=== PATIENT | female | born 1995 | race Caucasian/White ===

== ENCOUNTER 2016-07-05 10:34 | Emergency (ER) | payer SELFPAY ==
[~2016-07-05] VITALS: Ht 165.1 cm; Wt 86.2 kg
--- NOTE | 2016-07-05 10:57 | ED GU-Female ---
General Chief Complaint: -Female Stated Complaint: DIZZINESS/VOMITING Source: patient, family, RN notes reviewed Exam Limitations: no limitations History of Present Illness Time seen by provider: 10:52 Initial Comments Patient was feeling fine but left a tampon in overnight when stenosis morning she became dizzy, lightheaded and had some nausea of green fluid but no blood. She's had no fever, chills, diarrhea, constipation, rash, headache, dysuria, vaginal discharge. She notes she did have a miscarriage a few months ago. She states her mother told her she should come up. Be checked out for toxic shock syndrome. Allergies and Home Medications Allergies Coded Allergies: No Known Drug Allergies (Unverified , 07/05/16) Home Medications Ondansetron HCl 4 Mg Tab, 4 MG PO Q6H PRN for NAUSEA-1ST LINE, #20 Ref 0 Prescribed by: JORDI SOUZA on 07/05/16 4321 Constitutional: No chills, No diaphoresis, dizziness, No fever, malaise EENTM: no symptoms reported, No ear pain, No eye pain, No nose congestion Respiratory: No cough, No short of breath, No wheezing Cardiovascular: No chest pain, No edema, No palpitations, No syncope Gastrointestinal: No abdominal pain, No constipation, No diarrhea, No loss of appetite, nausea, vomiting (biliary, not witnessed) Genitourinary: denies burning, denies dysuria Skin: No pruritus, No rash Psychiatric/Neurological: Denies Headache, Denies Numbness Past Iwfrajr-Etshri-Ztwwob Hx Patient Social History Recent Foreign Travel: No Contact w/Someone Who Travel: No Physical Exam Vital Signs Vital Sign - Last 12Hours 07/05/16 10:40 Temp 97.0 Pulse 94 Resp 24 B/P (MAP) 128/93 Pulse Ox 98 Capillary Refill : General Appearance: WD/WN, no apparent distress HEENT: PERRL/EOMI, normal ENT inspection, pharynx normal Neck: non-tender, full range of motion, normal inspection Cardiovascular: normal peripheral pulses, regular rate, rhythm, no edema, no murmur Respiratory: chest non-tender, lungs clear, normal breath sounds, no respiratory distress Gastrointestinal: normal bowel sounds, non tender, soft Back: normal inspection, no CVA tenderness Extremities: normal range of motion, non-tender, normal inspection, no pedal edema Neurologic/Psychiatric: alert, normal mood/affect, oriented x 3 Skin: normal color, warm/dry Lymphatic: no adenopathy Progress/Results/Core Measures Results/Orders Lab Results Laboratory Tests Test 07/05/16 11:00 07/05/16 11:15 Range/Units Urine Color YELLOW Urine Clarity CLEAR Urine pH 6 5-9 Urine Specific [place] 1.020 1.016-1.022 Urine Protein NEGATIVE NEGATIVE Urine Glucose (UA) NEGATIVE NEGATIVE Urine Ketones NEGATIVE NEGATIVE Urine Nitrite NEGATIVE NEGATIVE Urine Bilirubin NEGATIVE NEGATIVE Urine Urobilinogen NORMAL NORMAL MG/DL Urine Leukocyte Esterase 1+ H NEGATIVE Urine RBC (Auto) NEGATIVE NEGATIVE Urine RBC NONE /HPF Urine WBC 2-5 /HPF Urine Squamous Epithelial Cells 0-2 /HPF Urine Crystals NONE /LPF Urine Bacteria LARGE H /HPF Urine Casts NONE /LPF Urine Mucus SMALL H /LPF Urine Culture Indicated NO White Blood Count 9.4 4.3-11.0 10^3/uL Red Blood Count 5.09 4.35-5.85 10^6/uL Hemoglobin 14.2 11.5-16.0 G/DL Hematocrit 42 35-52 % Mean Corpuscular Volume 83 80-99 FL Mean Corpuscular Hemoglobin 28 25-34 PG Mean Corpuscular Hemoglobin Concent 34 32-36 G/DL Red Cell Distribution Width 12.4 10.0-14.5 % Platelet Count 326 130-400 10^3/uL Mean Platelet Volume 9.6 7.4-10.4 FL Neutrophils (%) (Auto) 80 H 42-75 % Lymphocytes (%) (Auto) 13 12-44 % Monocytes (%) (Auto) 6 0-12 % Eosinophils (%) (Auto) 0 0-10 % Basophils (%) (Auto) 1 0-10 % Neutrophils # (Auto) 7.5 1.8-7.8 X 10^3 Lymphocytes # (Auto) 1.2 1.0-4.0 X 10^3 Monocytes # (Auto) 0.6 0.0-1.0 X 10^3 Eosinophils # (Auto) 0.0 0.0-0.3 10^3/uL Basophils # (Auto) 0.1 0.0-0.1 10^3/uL Sodium Level 139 135-145 MMOL/L Potassium Level 4.1 3.6-5.0 MMOL/L Chloride Level 106 98-107 MMOL/L Carbon Dioxide Level 23 21-32 MMOL/L Anion Gap 10 5-14 MMOL/L Blood Urea Nitrogen 10 7-18 MG/DL Creatinine 0.86 0.60-1.30 MG/DL Estimat Glomerular Filtration Rate > 60 BUN/Creatinine Ratio 12 Glucose Level 100 70-105 MG/DL Calcium Level 9.6 8.5-10.1 MG/DL Total Bilirubin 0.7 0.1-1.0 MG/DL Aspartate Amino Transf (AST/SGOT) 20 5-34 U/L Alanine Aminotransferase (ALT/SGPT) 13 0-55 U/L Alkaline Phosphatase 87 40-136 U/L Total Protein 8.3 H 6.4-8.2 G/DL Albumin 4.2 3.2-4.5 G/DL My Orders Orders - JORDI SOUZA Cbc With Automated Diff (07/05/16 10:57) Comprehensive Metabolic Panel (07/05/16 10:57) Ua Culture If Indicated (07/05/16 10:57) Ondansetron Oral Dissolve Tab (Zofran (07/05/16 11:30) Medications Given in ED Current Medications Medications Dose Ordered Sig/Giovany Route Start Time Stop Time Status Last Admin Dose Admin Ondansetron HCl 4 mg ONCE ONCE PO 07/05/16 11:30 07/05/16 11:32 DC 07/05/16 11:40 4 MG Vital Signs/I&O Vital Sign - Last 12Hours 07/05/16 07/05/16 10:40 12:04 Temp 97.0 97.0 Pulse 94 94 Resp 24 24 B/P (MAP) 128/93 Pulse Ox 98 98 Progress Note : Time: 11:48 Progress Note Patient is doing well her urine is unremarkable despite the bacteria she has, it is asymptomatic so no treatment would be indicated at this time. White count is normal despite a small left shift. Her symptoms could be explained by just anxiety. Nausea medicine prescription will be sent and the patient can establish with a PCP or return to the ER if something changes. Because her vitals are normal and her labs are unremarkable and her history is not that concerning for toxic shock syndrome or uti and I would allow her to go. Departure Impression Impression: Primary Impression: Nausea & vomiting Qualified Codes: R11.2 - Nausea with vomiting, unspecified Disposition: HOME, SELF-CARE Condition: Stable Departure-Patient Inst. Decision time for Depature: 11:50 Referrals: NO,LOCAL PHYSICIAN (PCP) Primary Care Physician Add. Discharge Instructions: There are no signs of infection of UTI or other worrisome findings on your blood work. He should drink plenty of fluids and a prescription for medicines he can take for nausea been sent to the pharmacy. 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 Establish with a PCP on your own time and you may return to the PCP or ER as necessary for new or worsening symptoms such as fever, nausea and vomiting but does not get better, painful discharge, etc. All discharge instructions reviewed with patient and/or family. Voiced understanding. Scripts Ondansetron HCl (Zofran) 4 Mg Tab 4 MG PO Q6H Y for NAUSEA-1ST LINE, #20 TAB 0 Refills Prov: JORDI SOUZA 07/05/16 JORDI SOUZA Jul 05, 2016 10:57
[2016-07-05 11:07] LABS: BILIRUBIN,URINE NEGATIVE (NEGATIVE); KETONES,URINE NEGATIVE (NEGATIVE); LEUKOCYTE ESTERASE ,URINE 1+ (NEGATIVE); NITRITE,URINE NEGATIVE (NEGATIVE); PH,URINE 6 (5-9); PROTEIN,URINE NEGATIVE (NEGATIVE); UROBILINOGEN,URINE NORMAL (NORMAL)
[2016-07-05 11:21] LABS: BASOPHILS # (AUTO) 0.1 10^3/uL (0.0-0.1); BASOPHILS % (AUTO) 1 % (0-10); EOSINOPHILS % (AUTO) 0 % (0-10); LYMPHOCYTES # (AUTO) 1.2 X 10^3 (1.0-4.0); LYMPHOCYTES % (AUTO) 13 % (12-44); MEAN CORPUSCULAR HEMOGLOBIN 28 PG (25-34); MEAN CORPUSCULAR HGB CONC 34 G/DL (32-36); MEAN CORPUSCULAR VOLUME 83 FL (80-99); MEAN PLATELET VOLUME 9.6 FL (7.4-10.4); MONOCYTES # (AUTO) 0.6 X 10^3 (0.0-1.0); MONOCYTES % (AUTO) 6 % (0-12); NEUTROPHILS # (AUTO) 7.5 X 10^3 (1.8-7.8); NEUTROPHILS % (AUTO) 80 % (42-75); PLATELET COUNT 326 10^3/uL (130-400); RED BLOOD COUNT 5.09 10^6/uL (4.35-5.85); RED CELL DISTRIBUTION WIDTH 12.4 % (10.0-14.5); WHITE BLOOD COUNT 9.4 10^3/uL (4.3-11.0)
[2016-07-05 11:26] LABS: SQUAMOUS EPITHELIAL CELL,UR 0-2 /HPF
[2016-07-05] MEDS ORDERED: ONDANSETRON 4 MG (ZOFRAN) ORAL DISSOLVE TAB PO ONE (11:30)
[2016-07-05 11:40] LABS: ALANINE AMINOTRANSFERASE 13 U/L (0-55); ALBUMIN 4.2 G/DL (3.2-4.5); ANION GAP 10 MMOL/L (5-14); ASPARTATE AMINO TRANSFERASE 20 U/L (5-34); BILIRUBIN,TOTAL 0.7 MG/DL (0.1-1.0); BLOOD UREA NITROGEN 10 MG/DL (7-18); BUN/CREATININE RATIO 12; CALCIUM 9.6 MG/DL (8.5-10.1); CARBON DIOXIDE 23 MMOL/L (21-32); CHLORIDE 106 MMOL/L (98-107); CREATININE SERUM 0.86 MG/DL (0.60-1.30); GFR ESTIMATED > 60; GLUCOSE 100 MG/DL (70-105); POTASSIUM 4.1 MMOL/L (3.6-5.0); SODIUM 139 MMOL/L (135-145); TOTAL PROTEIN 8.3 G/DL (6.4-8.2)
[2016-07-05] MEDS ORDERED: ONDN4T PO (11:53)
[2016-07-05 12:04] VITALS: BP 128/93
== END 2016-07-05 12:03 | disposition home or self-care (01) ==
LOC: ER 10:37
DX: R11.2 Nausea with vomiting, unspecified (principal); R42 Dizziness and giddiness
CPT/HCPCS: 36415; 80053; 81000; 85025; 99282

== ENCOUNTER 2019-01-28 20:26 | Outpatient (CLI) | payer MEDICAID ==
[~2019-01-28] VITALS: Ht 162 cm; Wt 97.3 kg
[~2019-01-28 20:26] MED LIST: ONDN4T PO
--- NOTE | 2019-01-28 20:40 | NUR ---
RENETTA REYNOLDS presented to unit via ambulatory from ED, accompanied by s/o , with c/o CRAMPING 34 2/7 weeks ,LOW BACK PAIN. RENETTA REYNOLDS weighed, gowned, voided, and to bed. EFHM and TOCO applied, VS taken. RENETTA REYNOLDS oriented to bed controls, call light, TV, heat, and A/C controls.
[2019-01-28 20:59] VITALS: BP 118/76
[2019-01-28 20:59] LABS: BILIRUBIN,URINE NEGATIVE (NEGATIVE); CLARITY,URINE CLEAR; COLOR,URINE YELLOW; GLUCOSE, URINE (UA) NEGATIVE (NEGATIVE); KETONES,URINE NEGATIVE (NEGATIVE); LEUKOCYTE ESTERASE ,URINE 1+ (NEGATIVE); NITRITE,URINE NEGATIVE (NEGATIVE); PH,URINE 6 (5-9); PROTEIN,URINE 1+ (NEGATIVE)
[2019-01-28 21:19] LABS: BACTERIA,URINE LARGE /HPF
--- NOTE | 2019-01-28 21:22 | NUR ---
notified of pt's arrival and complaint. u/a results, and tracing reviewed. Order to discharge home with Keflex received.
[2019-01-28] MEDS ORDERED: CEPH-507 PO (21:26)
[2019-01-28] MEDS ORDERED: CEPHALEXIN 250 MG (KEFLEX) CAP PO ONE (21:30)
--- NOTE | 2019-01-28 21:35 | NUR ---
Discharge instructions verbalized with pt. pt verbalized understanding. pt dc'd home. will follow up in clinic
--- NOTE | 2019-01-28 22:41 | NUR ---
keflex po bid x7days called in to [facility] preferred [facility].
--- NOTE | 2019-02-06 09:31 | Physician Query-Final Dx ---
FRANCESCA SCOTT 02/06/19 0931: Clinic Account Progress/Dx Physician Query: Please give diagnosis Please include # weeks gestation Date of Service Jan 28, 2019 at 20:26 MADELYN NOBLE DO 02/27/19 1706: Clinic Account Progress/Dx DIAGNOSIS: Diagnosis 34 week gestation UTI FRANCESCA SCOTT Feb 06, 2019 09:31 MADELYN RAND DO Feb 27, 2019 17:06 POS
[2019-03-07] MEDS ORDERED: DIBU30OI TOP (08:04)
[2019-03-07] MEDS ORDERED: Benzocaine/Menthol TP (08:04)
[2019-03-07] MEDS ORDERED: IBUP-844 PO (08:04)
[2019-03-07] MEDS ORDERED: DOCU100C37 PO (08:04)
[2019-03-07] MEDS ORDERED: ACHD5005 PO (08:04)
[2019-03-08] MEDS ORDERED: FERR325T18 PO (07:59)
== END 2019-01-28 21:35 | disposition home or self-care (01) ==
LOC: WSo 20:26 → LDRP 20:26 → WSo 21:35
PROVIDERS: ATTEND Obstetrics & Gynecology
DX: O62.8 Other abnormalities of forces of labor (principal); Z3A.34 34 weeks gestation of pregnancy
CPT/HCPCS: 81000; 87088

== ENCOUNTER 2019-03-01 11:10 | Outpatient (CLI) | payer MEDICAID ==
[~2019-03-01] VITALS: Ht 162.6 cm; Wt 99.9 kg
--- NOTE | 2019-03-01 10:55 | NUR ---
RENETAT REYNOLDS presented to unit via AMBULATORY from HOME, accompanied by MOTHER, with c/o CONTRACTIONS. RENETTA REYNOLDS weighed, gowned, voided, and to bed. EFHM and TOCO applied, VS taken. RENETTA REYNOLDS oriented to bed controls, call light, TV, heat, and A/C controls.
[~2019-03-01 11:10] MED LIST changes: +CEPH-507 PO
[2019-03-01 11:34] LABS: BILIRUBIN,URINE NEGATIVE (NEGATIVE); CLARITY,URINE SL CLOUDY; COLOR,URINE YELLOW; GLUCOSE, URINE (UA) NEGATIVE (NEGATIVE); KETONES,URINE NEGATIVE (NEGATIVE); LEUKOCYTE ESTERASE ,URINE NEGATIVE (NEGATIVE); NITRITE,URINE NEGATIVE (NEGATIVE); PROTEIN,URINE NEGATIVE (NEGATIVE)
--- NOTE | 2019-03-01 11:42 | NUR ---
DR. RUIZ TO PT'S BEDSIDE. POC DISCUSSED, PT VERBALIZES UNDERSTANDING. PT'S MOTHER AT THE BEDSIDE.
--- NOTE | 2019-03-01 11:48 | NUR ---
MONITOR PAPER CHANGED.
[2019-03-01 11:54] LABS: RBC,URINE RARE /HPF; WBC,URINE RARE /HPF
[2019-03-01 11:55] LABS: BACTERIA,URINE MODERATE /HPF
--- NOTE | 2019-03-01 12:16 | NUR ---
MONITORS RESUMED. PT HAS BEEN UP IN THE ROOM. PT REMAINS STANDING UP AT THE BEDSIDE.
[2019-03-01 12:35] VITALS: BP 118/76
--- NOTE | 2019-03-01 13:00 | NUR ---
DISCHARGE PAPERS PROVIDED AND REVIEWED WITH PT, PT VERBALIZES UNDERSTANDING. QUESTIONS ANSWERED. PAPER SIGNED.
--- NOTE | 2019-03-01 13:05 | NUR ---
PT DISCHARGED FROM -[facility] TO [facility] VIA AMBULATORY IN STABLE CONDITION ACC BY PT'S MOTHER.
--- NOTE | 2019-03-02 09:03 | Physician Query-Final Dx ---
FRANCESCA SCOTT 03/02/19 0903: Clinic Account Progress/Dx Physician Query: Please give diagnosis Please include # weeks gestation Date of Service Mar 01, 2019 at 11:10 JOI RUIZ DO 03/03/19 0647: Clinic Account Progress/Dx DIAGNOSIS: Diagnosis 38 week iup Prolonged latent phase labor FRANCESCA SCOTT Mar 02, 2019 09:03 POSJOI RUIZ DO Mar 03, 2019 06:47 POS
[2019-03-07] MEDS ORDERED: Benzocaine/Menthol TP (08:04)
[2019-03-07] MEDS ORDERED: DIBU30OI TOP (08:04)
[2019-03-07] MEDS ORDERED: IBUP-844 PO (08:04)
[2019-03-07] MEDS ORDERED: DOCU100C37 PO (08:04)
[2019-03-07] MEDS ORDERED: ACHD5005 PO (08:04)
[2019-03-08] MEDS ORDERED: FERR325T18 PO (07:59)
== END 2019-03-01 13:05 | disposition home or self-care (01) ==
LOC: WSo 11:10
PROVIDERS: ATTEND Obstetrics & Gynecology
DX: O62.9 Abnormality of forces of labor, unspecified (principal); Z3A.00 Weeks of gestation of pregnancy not specified
CPT/HCPCS: 81000; 87088; 99213

== ENCOUNTER 2019-03-05 17:11 | Outpatient (CLI) | payer MEDICAID ==
[~2019-03-05] VITALS: Ht 162.6 cm; Wt 100.4 kg
--- NOTE | 2019-03-05 17:05 | NUR ---
RENETTA REYNOLDS presented to unit via AMBULATION from ED, accompanied by S/O, with c/o CONTRACTIONS. RENETTA REYNOLDS weighed, gowned, voided, and to bed. EFHM and TOCO applied, VS taken. RENETTA REYNOLDS oriented to bed controls, call light, TV, heat, and A/C controls.
[2019-03-05 17:30] VITALS: BP 125/81
[2019-03-05 17:54] VITALS: BP 125/81
--- NOTE | 2019-03-05 18:14 | NUR ---
BEDSIDE SONO COMPLETED BY THIS RN TO VERIFY HEAD POSITIONING, VERTEX.
[2019-03-05 18:43] VITALS: BP 120/73
--- NOTE | 2019-03-05 19:05 | NUR ---
Dr. Lund called to check on pt, update given by Andrew Velazquez RN, new orders rc'd to D/C home if no cervical change, instruct to call office to change sched appt if cont. to contract & be uncomfortable.
[2019-03-05 19:30] VITALS: BP 125/78
--- NOTE | 2019-03-05 19:30 | NUR ---
D/C instructions given & explained, including information on early labor, instructions to call office tomorrow to change scheduled appointment Wednesday, pt. verbalized understanding & signed, copy of D/C instructions to pt. Pt. left [facility] ambulatory, escorted by mother, to home via private vehicle.
--- NOTE | 2019-03-06 08:17 | Physician Query-Final Dx ---
FRANCESCA SCOTT 03/06/19 0817: Clinic Account Progress/Dx Physician Query: Please give diagnosis Please include # weeks gestation Date of Service Mar 05, 2019 at 17:11 JOI RUIZ DO 03/06/19 0951: Clinic Account Progress/Dx DIAGNOSIS: Diagnosis 39 week iup prolonged latent phase labor FRANCESCA CSOTT Mar 06, 2019 08:17 POSJOI RUIZ DO Mar 06, 2019 09:51 POS
[2019-03-07] MEDS ORDERED: DOCU100C37 PO (08:04)
[2019-03-07] MEDS ORDERED: DIBU30OI TOP (08:04)
[2019-03-07] MEDS ORDERED: IBUP-844 PO (08:04)
[2019-03-07] MEDS ORDERED: Benzocaine/Menthol TP (08:04)
[2019-03-07] MEDS ORDERED: ACHD5005 PO (08:04)
[2019-03-08] MEDS ORDERED: FERR325T18 PO (07:59)
== END 2019-03-05 19:30 | disposition home or self-care (01) ==
LOC: WSo 17:11
PROVIDERS: ATTEND Obstetrics & Gynecology
DX: O63.0 Prolonged first stage (of labor) (principal); Z3A.39 39 weeks gestation of pregnancy
CPT/HCPCS: 99213

== ENCOUNTER 2019-03-06 05:11 | Inpatient (IN) | payer MEDICAID ==
[2019-03-06] VITALS (79 sets, daily range): BP systolic 100–161; BP diastolic 55–100
[~2019-03-06] VITALS: Ht 162.6 cm; Wt 100.4 kg
--- NOTE | 2019-03-06 05:20 | NUR ---
RENETTA REYNOLDS presented to unit via AMBULATION from HOME/ED, accompanied by SO, with c/o CONTRACTIONS. RENETTA REYNOLDS weighed, gowned, voided, and to bed. EFHM and TOCO applied, VS taken. RENETTA REYNOLDS oriented to bed controls, call light, TV, heat, and A/C controls.
[2019-03-06] MEDS ORDERED: D5 LR IV SOLUTION 1,000 ML IV ONE (06:17)
[2019-03-06] MEDS: D5 LR IV SOLUTION 1,000 ML IV SCH ×2 (07:35→15:16)
--- NOTE | 2019-03-06 07:36 | History & Physical-OB ---
OB - Chief Complaint & HPI Date/Time Date of Admission: Date of Admission: 03/06/2020 Date seen by a Provider: Mar 06, 2019 Time Seen by a Provider: 07:30 Chief Complaint/History OB-Reason for Admission/Chief: Onset of Labor Hx : 4 Hx Para: 0 Expected Date of Delivery: Mar 09, 2019 Gestational Age in Weeks: 39 Gestational Age in Days: 4 Admission Nurse Assessment Rev: Yes History of Labs O neg Antibody neg RI RPR NR HBsAg NR HIV NR GC neg GBS neg Allergies and Home Medications Allergies Coded Allergies: No Known Drug Allergies (Unverified , 07/05/16) Home Medications No Active Prescriptions or Reported Meds Patient Home Medication List Home Medication List Reviewed: Yes OB - History Hx of Present Care: Yes Ultrasounds: Normal mid trimester US Obstetrical Complications: None Medical Complications: None Obstetrical History Hx : 4 Hx Para: 0 Hx Total # of Abortions (Spona: 0 Patient Past Medical History n/a Social History/Family History Recent Infectious Disease Expo: No Alcohol Use: Denies Use Recreational Drug Use: No 2nd Hand Smoke Exposure: No OB - Admission Exam Physical Exam Vitals: Vital Signs 03/06/19 05:23 Temp 36.5 Pulse 96 Resp 18 Pulse Ox 100 O2 Delivery Room Air HEENT: NCAT Heart: Rhythm Normal Lungs: Clear Abdomen: Gravid Extremities: Normal Reflexes: Normal Cervical Dilatation: 3cm Effacement: 75% Station: -2 Membranes: Intact Heart Rate: 130's Accelerations: Accelerations Present Decelerations: No Decelerations Short Term Variability: Present Software Architect Variability: Average (6-25) Contractions on Admission: 6-10 Minutes Apart Intensity: Mild OB - Assessment/Plan/Diagnosis Assessment Assessment: active labor Admission Dx 23 yo @ 39.4 weeks Active labor GBS neg Admission Status: Inpatient Order (span 2 midnights) Reason for Inpatient Admission: Active labor at term Plan Plan: Expectant Management JOI RUIZ DO Mar 06, 2019 07:36 POS
[2019-03-06] MEDS ORDERED: OXYTOCIN/NORMAL SALINE 500 ML IV SCH ×2 (07:46→18:16)
[2019-03-06] MEDS ORDERED: OXYTOCIN/NORMAL SALINE 500 ML IV ONE (07:48)
[2019-03-06 07:51] LABS: BASOPHILS % (AUTO) 0 % (0-10); EOSINOPHILS % (AUTO) 0 % (0-10); HEMATOCRIT 34 % (35-52); HEMOGLOBIN 11.1 G/DL (11.5-16.0); LYMPHOCYTES # (AUTO) 1.7 X 10^3 (1.0-4.0); LYMPHOCYTES % (AUTO) 12 % (12-44); MEAN CORPUSCULAR HEMOGLOBIN 26 PG (25-34); MEAN CORPUSCULAR HGB CONC 33 G/DL (32-36); MEAN CORPUSCULAR VOLUME 79 FL (80-99); MEAN PLATELET VOLUME 9.8 FL (7.4-10.4); MONOCYTES % (AUTO) 7 % (0-12); NEUTROPHILS # (AUTO) 11.9 X 10^3 (1.8-7.8); NEUTROPHILS % (AUTO) 81 % (42-75); PLATELET COUNT 337 10^3/uL (130-400); RED CELL DISTRIBUTION WIDTH 13.1 % (10.0-14.5); WHITE BLOOD COUNT 14.7 10^3/uL (4.3-11.0)
[2019-03-06] MEDS ORDERED: SUFENTA 0.6MCG/ML BUPIVA 0.125 100 ML ONE (08:43)
[2019-03-06] MEDS ORDERED: LIDOCAINE PF 2% 5 ML (XYLOCAINE) VIAL ONE (08:47)
[2019-03-06] MEDS ORDERED: BUPIVACAINE 0.25% 30 ML (SENSORCAINE) VIAL ONE (08:47)
[2019-03-06] MEDS ORDERED: fentaNYL INJECTION 250 MCG/5 ML AMP ONE (08:48)
--- NOTE | 2019-03-06 08:50 | NUR ---
0850 Doroteo EPSTEIN CRNA here for epidural placement. Procedure explained, consent reviewed and signed by anesthesia. Questions answered to patient's satisfaction. Time out taken to verify correct patient/procedure. 0855 Patient up to side of bed, assisted into sitting position. 0900 Betadine prep done x3 and sterile drape applied. 0901 Local done, see anesthesia record. 0908 Test dose given, see anesthesia record for drug and dosage. Epidural catheter secured in place. Epidural placement complete. 0912 Assisted back into bed, monitors adjusted. Epidural dosed, see anesthesia record. Epidural of Sufenta/Bupvicaine @12cc/hr stated per pump. Patient tolerated procedure well.
[2019-03-06] MEDS ORDERED: LACTATED RINGERS 1,000 ML IV ONE ×2 (09:34)
[2019-03-06] MEDS ORDERED: ONDANSETRON 4 MG/2 ML (SDV) Z0FRAN IV PRN (09:45)
[2019-03-06] MEDS ORDERED: EPIDURAL (SUFENTA 0.6MCG/ML BUPIVA 0.125%) 100 ML BAG EPI PRN (09:45)
[2019-03-06] MEDS ORDERED: NALOXONE 0.4 MG/ML 1 ML (NARCAN) VIAL IV PRN (09:45)
[2019-03-06] MEDS ORDERED: CATHETER FLUSH 10 ML SYR IV SCH ×2 (14:00→22:00)
[2019-03-06] MEDS ORDERED: LIDOCAINE/EPI 2% 1:200,00 (XYLOCAINE) 10 ML VIAL ONE (17:15)
--- NOTE | 2019-03-06 18:19 | OB Labor & Delivery Record ---
L&D History Date of Service Date of Service: Mar 06, 2019 History Expected Date of Delivery: Mar 09, 2019 Gestational Age in Weeks: 39 Hx : 4 Hx Para: 0 Complications Events: Routine care Operative Indications (Cesarea: N/A-Vaginal Delivery Intrapartal Events: None L&D Stage1 Stage One Onset of Labor - Date: Mar 06, 2019 Monitors and Tracing Monitor Mode: External Heart Rate: 135 Monitor Decelerations: None Vital Signs VS - Last 72 Hours, by Label POS 03/06/19 03/06/19 03/06/19 03/06/19 05:23 07:54 08:10 08:26 Temp 36.5 37.1 Pulse 96 96 86 83 Resp 18 18 18 18 B/P (MAP) 133/83 (100) 127/82 (97) 134/92 (106) Pulse Ox 100 O2 Delivery Room Air Room Air Room Air Room Air 03/06/19 03/06/19 03/06/19 03/06/19 08:39 08:54 08:57 09:00 Temp 36.9 Pulse 94 101 100 105 Resp 18 18 18 18 B/P (MAP) 142/94 (110) 142/91 (108) 140/100 (113) 129/82 (98) Pulse Ox 98 O2 Delivery Room Air Room Air Room Air Room Air 03/06/19 03/06/19 03/06/19 03/06/19 09:03 09:06 09:10 09:13 Pulse 88 93 91 93 Resp 18 18 18 18 B/P (MAP) 131/82 (98) 124/76 (92) 119/79 (92) 114/71 (85) Pulse Ox 97 97 O2 Delivery Room Air Room Air Room Air Room Air 03/06/19 03/06/19 03/06/19 03/06/19 09:16 09:19 09:22 09:25 Pulse 96 96 90 94 Resp 18 18 18 18 B/P (MAP) 116/73 (87) 120/65 (83) 118/66 (83) 117/62 (80) Pulse Ox 97 97 97 O2 Delivery Room Air Room Air Room Air Room Air 03/06/19 03/06/19 03/06/19 03/06/19 09:32 09:36 09:46 09:51 Pulse 100 90 93 91 Resp 18 18 18 18 B/P (MAP) 103/65 (78) 112/66 (81) 117/64 (81) 118/66 (83) Pulse Ox 96 97 98 98 O2 Delivery Room Air Room Air Room Air Room Air 03/06/19 03/06/19 03/06/19 03/06/19 09:57 10:02 10:07 10:13 Pulse 93 86 85 107 Resp 18 18 18 18 B/P (MAP) 116/65 (82) 110/65 (80) 113/58 (76) 149/63 (91) Pulse Ox 97 O2 Delivery Room Air Room Air Room Air Room Air 03/06/19 03/06/19 03/06/19 03/06/19 10:16 10:22 10:27 10:32 Temp 36.4 Pulse 89 88 92 88 Resp 18 18 18 18 B/P (MAP) 106/65 (79) 113/66 (82) 112/65 (81) 112/67 (82) O2 Delivery Room Air Room Air Room Air Room Air 03/06/19 03/06/19 03/06/19 03/06/19 10:36 10:43 10:48 10:53 Pulse 83 81 93 82 Resp 18 18 18 18 B/P (MAP) 109/64 (79) 110/67 (81) 110/73 (85) 110/63 (79) O2 Delivery Room Air Room Air Room Air Room Air 03/06/19 03/06/19 03/06/19 03/06/19 10:57 11:06 11:13 11:16 Pulse 88 88 88 93 Resp 18 18 18 18 B/P (MAP) 112/74 (87) 117/74 (88) 118/66 (83) 129/80 (96) O2 Delivery Room Air Room Air Room Air Room Air 03/06/19 03/06/19 03/06/19 03/06/19 11:22 11:27 11:32 11:36 Temp 36.4 Pulse 95 85 85 86 Resp 18 18 18 18 B/P (MAP) 122/73 (89) 113/68 (83) 113/66 (82) 116/58 (77) O2 Delivery Room Air Room Air Room Air Room Air 03/06/19 03/06/19 03/06/19 03/06/19 11:53 12:08 12:22 12:38 Pulse 80 76 78 86 Resp 18 18 18 18 B/P (MAP) 112/67 (82) 111/65 (80) 109/64 (79) 114/72 (86) O2 Delivery Room Air Room Air Room Air Room Air 03/06/19 03/06/19 03/06/19 03/06/19 12:47 12:52 13:09 13:23 Temp 36.3 Pulse 82 84 84 Resp 18 18 18 B/P (MAP) 113/72 (86) 112/78 (89) 112/73 (86) O2 Delivery Room Air Room Air Room Air 03/06/19 03/06/19 03/06/19 03/06/19 13:39 13:52 14:08 14:14 Pulse 80 83 96 81 Resp 18 18 18 18 B/P (MAP) 110/77 (88) 111/75 (87) 141/93 (109) 119/74 (89) O2 Delivery Room Air Room Air Room Air Room Air 03/06/19 03/06/19 03/06/19 03/06/19 14:23 14:38 14:53 15:08 Pulse 82 78 78 99 Resp 18 18 18 18 B/P (MAP) 121/79 (93) 120/80 (93) 113/78 (90) 128/83 (98) O2 Delivery Room Air Room Air Room Air Room Air 03/06/19 03/06/19 03/06/19 15:22 15:39 15:54 Temp 36.5 Pulse 95 111 95 Resp 18 18 18 B/P (MAP) 124/82 (96) 131/85 (100) 131/72 (91) O2 Delivery Room Air Room Air Room Air Rupture of Membranes Spontaneous Ruture of Membrane: No Amniotic Membrane Rupture Time: 942 Amniotic Membrane Fluid Desc.: Clear Vaginal Bleeding Description: Normal Show Induction/Anesthesia Epidural Cath Placement - Time: 905 Progress/Notes Patient progressed to complete and +1 using pitocin augmentation and AROM L&D Stage2 Stage Two Stage II Date: Mar 06, 2019 Monitors and Tracing Monitor Mode: External Heart Rate: 135 Monitor Decelerations: None Halfway Variability: Average (6-10) Short Term Variability: Present Position: Right Occiput Anterior Presentation: Vertex Cord Descript/Complications Cord Vessel Description: 3 Vessels Complications nuchal cord reduced x 1 Delivery Type Delivery Method: Spontaneous Vaginal Anterior Shoulder: Right Episiotomy/Perineal Laceration Laceraction(s)/Extensions: Yes Episiotomy Description: Right Mediolateral Location Modifier: Right Degree (describe repair) RML repaired using 3-0 and 2-0 vicryl suture Condition of Delivery 1 minute Comment: 7 5 minute Comment: 9 Notes Live female weight 8lbs 9 oz Condition of Infant Condition of : Living Exam: No Observed Abnormalities Resuscitation Resuscitation: N/A - Spontaneous Resp L&D Stage3 Stage Three Stage III Date: Mar 06, 2019 Pictocin Pitocin Administration mu/min: 10 Pitocin ml/hr: 10 Pitocin Administration Comment: 1246 PITOCIN INCREASED. Placenta Delivery Placenta Delivery: Spontaneous Delivery Summary Summary Estimated blood loss (mL): 350 Attending at delivery: Joi Ruiz DO Condition of Delivery Examined: Cervix Examined, Uterus Explored Post Hemorrhage: No Condition of Mother stable Condition of (s) stable JOI RUIZ DO Mar 06, 2019 18:19 POS
[2019-03-06] MEDS ORDERED: WITCH HAZEL(TUCKS) 40 EA JAR TOP PRN (18:30)
[2019-03-06] MEDS ORDERED: BENZOCAINE/MENTHOL (DERMOPLAST) 56 ML CAN TP PRN (18:30)
[2019-03-06] MEDS ORDERED: TETANUS,DIPTH,PERTUSS P/F (BOOSTRIX) 0.5 ML VIAL IM ONE (18:30)
[2019-03-06] MEDS ORDERED: DIBUCAINE (NUPERCAINAL) 1% OINT 30 GM TOP PRN (18:30)
[2019-03-06] MEDS ORDERED: MEASLES,MUMPS,RUBELLA 1 EA INJ SQ ONE (18:30)
--- NOTE | 2019-03-06 19:00 | NUR ---
REFER TO LABOR FLOW SHEET.
[2019-03-06] MEDS: IBUPROFEN 600 MG (MOTRIN) TAB PO SCH (19:24)
[2019-03-07] VITALS (7 sets, daily range): BP systolic 108–121; BP diastolic 66–80
[2019-03-07] MEDS: IBUPROFEN 600 MG (MOTRIN) TAB PO SCH ×5 (01:18→23:33)
[2019-03-07] MEDS: HYDROcodone/APAP 5 MG/325 MG (LORTAB) TAB PO PRN (02:45)
[2019-03-07] MEDS: DOCUSATE SODIUM 100 MG (COLACE) CAP PO SCH ×3 (05:14→20:32)
[2019-03-07 06:19] LABS: BASOPHILS % (AUTO) 0 % (0-10); EOSINOPHILS # (AUTO) 0.1 10^3/uL (0.0-0.3); EOSINOPHILS % (AUTO) 0 % (0-10); HEMATOCRIT 27 % (35-52); HEMOGLOBIN 8.9 G/DL (11.5-16.0); LYMPHOCYTES # (AUTO) 2.3 X 10^3 (1.0-4.0); LYMPHOCYTES % (AUTO) 17 % (12-44); MEAN CORPUSCULAR HEMOGLOBIN 27 PG (25-34); MEAN CORPUSCULAR HGB CONC 33 G/DL (32-36); MEAN CORPUSCULAR VOLUME 82 FL (80-99); MEAN PLATELET VOLUME 9.7 FL (7.4-10.4); MONOCYTES # (AUTO) 1.2 X 10^3 (0.0-1.0); MONOCYTES % (AUTO) 9 % (0-12); NEUTROPHILS # (AUTO) 10.2 X 10^3 (1.8-7.8); NEUTROPHILS % (AUTO) 74 % (42-75); PLATELET COUNT 290 10^3/uL (130-400); RED CELL DISTRIBUTION WIDTH 12.9 % (10.0-14.5); WHITE BLOOD COUNT 13.7 10^3/uL (4.3-11.0)
--- NOTE | 2019-03-07 07:50 | Postpartum Progress Note ---
KAREN RIGGINS [facility] 03/07/19 0750: Note Note Day # 1 Subjective: Patient is without complaints. Ambulating, voiding. Tolerating a regular diet without nausea or vomiting. Normal lochia. Pain is well controlled with oral pain medications. Objective: Physical Exam: General - Alert and oriented, no apparent distress Abdomen - Soft, appropriately tender to palpation, non-distended, fundus firm at umbilicus Extremities - no edema, negative Adrian's bilaterally Assessment: post- day # 1 status post vaginal delivery. Recovering well acute blood loss anemia Plan: Routine care. Encourage breast feeding. Encourage ambulation. Ferrous sulfate supplementation. Plan for discharge Vitals - Labs Vital Signs - I&O Vital Signs Date Time Temp Pulse Resp B/P (MAP) Pulse Ox O2 Delivery O2 Flow Rate FiO2 03/07/19 05:20 36.7 85 18 114/78 (90) 98 Room Air 03/07/19 02:15 36.4 88 18 119/78 (92) Room Air 03/07/19 00:16 36.0 87 18 121/80 (94) Room Air 03/06/19 22:46 36.7 88 18 117/67 (84) Room Air 03/06/19 22:24 104 18 117/80 (92) Room Air 03/06/19 21:54 108 18 125/63 (83) Room Air 03/06/19 21:24 104 18 123/70 (87) Room Air 03/06/19 20:54 36.8 108 18 130/76 (94) Room Air 03/06/19 20:24 111 18 122/77 (92) Room Air 03/06/19 19:54 36.9 106 18 123/83 (96) 98 Room Air 03/06/19 19:22 36.9 99 18 124/70 (88) Room Air 03/06/19 19:07 98 18 123/66 (85) Room Air 03/06/19 18:52 117 18 139/74 (95) Room Air 03/06/19 18:38 37.1 115 18 119/60 (79) Room Air 03/06/19 18:22 131 18 100/55 (70) Room Air 03/06/19 18:07 37.1 115 18 139/58 (85) Room Air 03/06/19 17:40 141 18 132/71 (91) Room Air 03/06/19 17:23 102 18 130/82 (98) Room Air 03/06/19 17:09 118 18 161/86 (111) Room Air 03/06/19 16:53 92 18 137/85 (102) Room Air 03/06/19 16:38 87 18 114/66 (82) Room Air 03/06/19 16:22 86 18 109/63 (78) Room Air 03/06/19 16:08 93 18 109/63 (78) Room Air 03/06/19 15:54 36.5 95 18 131/72 (91) Room Air 03/06/19 15:39 111 18 131/85 (100) Room Air 03/06/19 15:22 95 18 124/82 (96) Room Air 03/06/19 15:08 99 18 128/83 (98) Room Air 03/06/19 14:53 78 18 113/78 (90) Room Air 03/06/19 14:38 78 18 120/80 (93) Room Air 03/06/19 14:23 82 18 121/79 (93) Room Air 03/06/19 14:14 81 18 119/74 (89) Room Air 03/06/19 14:08 96 18 141/93 (109) Room Air 03/06/19 13:52 83 18 111/75 (87) Room Air 03/06/19 13:39 80 18 110/77 (88) Room Air 03/06/19 13:23 84 18 112/73 (86) Room Air 03/06/19 13:09 84 18 112/78 (89) Room Air 03/06/19 12:52 82 18 113/72 (86) Room Air 03/06/19 12:47 36.3 03/06/19 12:38 86 18 114/72 (86) Room Air 03/06/19 12:22 78 18 109/64 (79) Room Air 03/06/19 12:08 76 18 111/65 (80) Room Air 03/06/19 11:53 80 18 112/67 (82) Room Air 03/06/19 11:36 36.4 86 18 116/58 (77) Room Air 03/06/19 11:32 85 18 113/66 (82) Room Air 03/06/19 11:27 85 18 113/68 (83) Room Air 03/06/19 11:22 95 18 122/73 (89) Room Air 03/06/19 11:16 93 18 129/80 (96) Room Air 03/06/19 11:13 88 18 118/66 (83) Room Air 03/06/19 11:06 88 18 117/74 (88) Room Air 03/06/19 10:57 88 18 112/74 (87) Room Air 03/06/19 10:53 82 18 110/63 (79) Room Air 03/06/19 10:48 93 18 110/73 (85) Room Air 03/06/19 10:43 81 18 110/67 (81) Room Air 03/06/19 10:36 83 18 109/64 (79) Room Air 03/06/19 10:32 36.4 88 18 112/67 (82) Room Air 03/06/19 10:27 92 18 112/65 (81) Room Air 03/06/19 10:22 88 18 113/66 (82) Room Air 03/06/19 10:16 89 18 106/65 (79) Room Air 03/06/19 10:13 107 18 149/63 (91) Room Air 03/06/19 10:07 85 18 113/58 (76) Room Air 03/06/19 10:02 86 18 110/65 (80) Room Air 03/06/19 09:57 93 18 116/65 (82) 97 Room Air 03/06/19 09:51 91 18 118/66 (83) 98 Room Air 03/06/19 09:46 93 18 117/64 (81) 98 Room Air 03/06/19 09:36 90 18 112/66 (81) 97 Room Air 03/06/19 09:32 100 18 103/65 (78) 96 Room Air 03/06/19 09:25 94 18 117/62 (80) 97 Room Air 03/06/19 09:22 90 18 118/66 (83) Room Air 03/06/19 09:19 96 18 120/65 (83) 97 Room Air 03/06/19 09:16 96 18 116/73 (87) 97 Room Air 03/06/19 09:13 93 18 114/71 (85) Room Air 03/06/19 09:10 91 18 119/79 (92) 97 Room Air 03/06/19 09:06 93 18 124/76 (92) Room Air 03/06/19 09:03 88 18 131/82 (98) 97 Room Air 03/06/19 09:00 105 18 129/82 (98) 98 Room Air 03/06/19 08:57 100 18 140/100 (113) Room Air 03/06/19 08:54 101 18 142/91 (108) Room Air 03/06/19 08:39 36.9 94 18 142/94 (110) Room Air 03/06/19 08:26 83 18 134/92 (106) Room Air 03/06/19 08:10 86 18 127/82 (97) Room Air 03/06/19 07:54 37.1 96 18 133/83 (100) Room Air I & O 03/07/19 07:00 Intake Total 2500 ml Balance 2500 ml Labs Laboratory Tests 03/07/19 06:00: White Blood Count 13.7H, Red Blood Count 3.33L, Hemoglobin 8.9L, Hematocrit 27L, Mean Corpuscular Volume 82, Mean Corpuscular Hemoglobin 27, Mean Corpuscular Hemoglobin Concent 33, Red Cell Distribution Width 12.9, Platelet Count 290, Mean Platelet Volume 9.7, Neutrophils (%) (Auto) 74, Lymphocytes (%) (Auto) 17, Monocytes (%) (Auto) 9, Eosinophils (%) (Auto) 0, Basophils (%) (Auto) 0, N eutrophils # (Auto) 10.2H, Lymphocytes # (Auto) 2.3, Monocytes # (Auto) 1.2H, Eosinophils # (Auto) 0.1, Basophils # (Auto) 0.0 JOI RUIZ DO 03/07/19 0801: Note Note I saw and evaluated patient, agree with above KAREN RIGGINS [facility] Mar 07, 2019 07:50 JOI THRASHER DO Mar 07, 2019 08:01 POS
[2019-03-07] MEDS ORDERED: ACHD5005 PO (08:04)
[2019-03-07] MEDS ORDERED: IBUP-844 PO (08:04)
[2019-03-07] MEDS ORDERED: Benzocaine/Menthol TP (08:04)
[2019-03-07] MEDS ORDERED: DIBU30OI TOP (08:04)
[2019-03-07] MEDS ORDERED: DOCU100C37 PO (08:04)
--- NOTE | 2019-03-07 08:06 | Discharge Inst-Women's Service ---
Discharge Inst-Women's Serv Depart Medication/Instructions New, Converted or Re-Newed RX: RX on Chart Final Diagnosis PPD 2 NVD Problems Reviewed?: Yes Consults/Follow Up Additional Follow Up: Yes Orders/Referrals Dr. Ruiz in 6 weeks Activity Driving Instructions: No Driving for 1 Week NO SMOKING: NO SMOKING Nothing Inside Vagina: No Douching, No [place], No Tampons Diet Discharge Diet: No Restrictions Symptoms to Report to : Bleeding Excessive, Pain Increased, Fever Over 101 D egrees F, Vaginal Bleeding Increase, Questions/Concerns For Any Problems or Questions: Contact Your Physician JOI RUIZ DO Mar 07, 2019 08:06 POS
--- NOTE | 2019-03-07 09:30 | NUR ---
A.M. ASSESSMENT COMPLETED. VSS. CARING FOR IN ROOM. C/O HIPS HURTING BILATERALLY WITH AMBULATION. STATES INFORMED DR. RUIZ WHEN HE WAS ROUNDING.
[2019-03-07] MEDS: PRENATAL VITAMIN 1 EA TAB PO SCH (09:44)
--- NOTE | 2019-03-07 09:44 | Anesthesia-Regional Post-Op ---
Regional Patient Condition Mental Status: Alert, Oriented x3 Circulation: Same as Pre-Op Headache: Absent Sensation: Full Recovery Motor Block: Absent Post Op Complications Complications None Follow Up Care/Instructions Patient Instructions None needed. Anesthesia/Patient Condition Patient is doing well, no complaints, stable vital signs, no apparent adverse anesthesia problems. No complications reported per nursing. GLADYS LIM CRNA Mar 07, 2019 09:44 POS
--- NOTE | 2019-03-07 10:00 | NUR ---
ICE PACK GIVEN FOR PERINEUM WELL NUPERCAINAL.
--- NOTE | 2019-03-07 13:00 | NUR ---
EATING STORK MEAL.
--- NOTE | 2019-03-07 16:30 | NUR ---
VISITORS AT BEDSIDE. CONTINUES TO CARE FOR IN ROOM. GOOD INTERACTION NOTED. STATES HIP PAIN UNCHANGED WITH AMBULATION.
--- NOTE | 2019-03-07 18:30 | NUR ---
NO CHANGE IN STATUS. EATING DINNER. INFANT IN ROOM AT BEDSIDE.
--- NOTE | 2019-03-07 20:49 | NUR ---
Called Dr. Lund, update given & informed of pt's continued c/o lower abd "pain, soreness, feels like I pulled something" per pt, no new orders rc'd, will cont. to monitor & offer comfort measures (warm blanket, position changes, etc) & offer pain meds as already discussed w/pt. & family.
[2019-03-08 04:00] VITALS: BP 111/71
[2019-03-08] MEDS: IBUPROFEN 600 MG (MOTRIN) TAB PO SCH ×2 (04:34→10:56)
--- NOTE | 2019-03-08 07:55 | Postpartum Progress Note ---
KAREN RIGGINS [facility] 03/08/19 0755: Note Note Day # 2 Subjective: Patient is without complaints. Ambulating, voiding. Tolerating a regular diet without nausea or vomiting. Normal lochia. Pain is well controlled with oral pain medications. Breast feeding. Objective: Physical Exam: General - Alert and oriented, no apparent distress Abdomen - Soft, appropriately tender to palpation, non-distended, fundus firm at umbilicus Extremities - no edema, negative Adrian's bilaterally Assessment: post- day # 2 status post vaginal delivery. Recovering well Acute blood loss anemia Plan: Routine care. Encourage breast feeding. Encourage ambulation. Ferrous sulfate supplementation. Plan for discharge Vitals - Labs Vital Signs - I&O Vital Signs Date Time Temp Pulse Resp B/P (MAP) Pulse Ox O2 Delivery O2 Flow Rate FiO2 03/08/19 04:00 36.3 81 18 111/71 (84) 98 Room Air 03/07/19 20:32 37.0 98 18 119/74 (89) 98 Room Air 03/07/19 16:30 36.7 95 18 109/77 (88) 98 Room Air 03/07/19 12:30 36.7 89 18 114/66 (82) 98 Room Air 03/07/19 09:30 36.7 89 18 108/77 (87) 98 Room Air JOI RUIZ DO 03/08/19 0822: Note Note Agree with documentation above. Saw and evaluated patient. PPD 2 NVD Acute blood loss anemia Replace Iron and dc instructions reviewed today. [facility]IG[facility]AREN [facility] Mar 08, 2019 07:55 POSJOI RUIZ DO Mar 08, 2019 08:22 POS
[2019-03-08] MEDS ORDERED: FERR325T18 PO (07:59)
[2019-03-08 08:30] VITALS: BP 123/71
--- NOTE | 2019-03-08 08:30 | NUR ---
A.M. ASSESSMENT COMPLETED. VSS. PLANS FOR DISCHARGE TODAY.
[2019-03-08] MEDS: DOCUSATE SODIUM 100 MG (COLACE) CAP PO SCH (08:39)
[2019-03-08] MEDS: PRENATAL VITAMIN 1 EA TAB PO SCH (08:39)
[2019-03-08] MEDS: HYDROcodone/APAP 5 MG/325 MG (LORTAB) TAB PO PRN (08:39)
--- NOTE | 2019-03-08 10:30 | NUR ---
AMBULATING IN THE ROOM. STATES FEELING MUCH BETTER.
--- NOTE | 2019-03-08 11:10 | NUR ---
DISCHARGE INSTRUCTIONS REVIEWED WITH COPY TO PT. STATES UNDERSTANDING OF ALL INSTRUCTIONS AND NEED TO F/U SCHEDULED AND NEEDED.
[2019-03-08 12:40] VITALS: BP 123/71
--- NOTE | 2019-03-08 12:40 | NUR ---
DISMISSED AMB FROM [facility] WITH TO FAMILY CAR IN STABLE CONDITION ACC BY NAMITA HOOD RN.
== END 2019-03-08 12:40 | disposition home or self-care (01) | DRG 806 ==
LOC: WSo 05:11 → LDRP 05:12 → WSo 06:59 → LDRP 07:00
PROVIDERS: ADMIT Obstetrics & Gynecology; ATTEND Obstetrics & Gynecology
PROC: 10E0XZZ Delivery of Products of Conception, External Approach (ICD-10-PCS; principal; 2019-03-06)
PROC: 0W8NXZZ Division of Female Perineum, External Approach (ICD-10-PCS; 2019-03-06)
PROC: 10907ZC Drainage of Amniotic Fluid, Therapeutic from Products of Conception, Via Natural or Artificial Opening (ICD-10-PCS; 2019-03-06)
DX: O69.81X0 Labor and delivery complicated by cord around neck, without compression, not applicable or unspecified (principal); Z37.0 Single live birth; D62 Acute posthemorrhagic anemia; O90.81 Anemia of the puerperium; Z3A.39 39 weeks gestation of pregnancy; Z28.21 Immunization not carried out because of patient refusal
CPT/HCPCS: 36415; 85025; 86850; 86900; 86901; 99212

== ENCOUNTER → 2021-04-02 | Outpatient (CLI) | payer BC ==
[~2021-04-02] MED LIST changes: +ACHD5005 PO; +Benzocaine/Menthol TP; +DIBU30OI TOP; +DOCU100C37 PO; +FERR325T18 PO; +IBUP-844 PO
--- NOTE | 2021-04-02 16:15 | Diagnostic Imaging Report ---
PROCEDURE: Pelvic complete, transabdominal and transvaginal sonogram. Limited pelvic doppler. TECHNIQUE: Multiple real-time grayscale images were obtained of the pelvis in various projections transabdominally and transvaginally. Limited pelvic duplex images were obtained. HISTORY: Pelvic pain COMPARISON: None available. FINDINGS: The uterus is anteverted and is normal in size. It measures 7.1 x 3.3 x 4.8 cm. The endometrial stripe measures 6 mm in width. There is a 7.2 x 5.7 x 7.1 cm cyst with no internal nodularity arising from the left ovary. There is a reticular pattern of internal echoes. The right ovary is normal. The right ovary measures 3.5 x 1.6 x 1.5 cm and the left ovary measures 7.3 x 5.7 x 7.1 cm. Duplex images reveal normal arterial inflow to both ovaries. Small amount of free pelvic fluid is present IMPRESSION: 1. Likely hemorrhagic cyst in the left ovary measuring 7.3 x 7.1 x 5.7 cm. 6-12 week followup is recommended to ensure resolution. Dictated by: Dictated on workstation # [id number]
== END ==
LOC: RAD 15:10
PROVIDERS: ATTEND Obstetrics & Gynecology
DX: R10.2 Pelvic and perineal pain (principal)
CPT/HCPCS: 76830; 76856

== ENCOUNTER 2021-05-29 05:42 | Outpatient (CLI) | payer BC ==
[~2021-05-29] VITALS: Ht 162.6 cm; Wt 100.5 kg
[2021-06-02] MEDS ORDERED: ACHD5005 PO (10:35)
[2021-06-02] MEDS ORDERED: IBUP-1773 PO (10:35)
== END 2021-05-29 10:45 | disposition home or self-care (01) ==
LOC: PREOP 05:42
PROVIDERS: ATTEND Obstetrics & Gynecology
DX: Z01.818 Encounter for other preprocedural examination (principal)

== ENCOUNTER 2021-06-02 08:41 | Day surgery (SDC) | payer BC ==
[2021-06-02] VITALS (11 sets, daily range): BP systolic 107–129; BP diastolic 66–91
[~2021-06-02] VITALS: Ht 162 cm; Wt 100.5 kg
[2021-06-02] MEDS ORDERED: ceFAZolin INJECTION 1,000 MG VIAL IV ONE (09:15)
[2021-06-02] MEDS: LACTATED RINGERS 1,000 ML IV PRN ×2 (09:42→11:52)
[2021-06-02 10:00] LABS: BASOPHILS # (AUTO) 0.1 10^3/uL (0.0-0.1); BASOPHILS % (AUTO) 1 % (0-10); EOSINOPHILS # (AUTO) 0.2 10^3/uL (0.0-0.3); EOSINOPHILS % (AUTO) 3 % (0-10); HEMATOCRIT 44 % (35-52); HEMOGLOBIN 14.5 g/dL (11.5-16.0); LYMPHOCYTES # (AUTO) 1.8 10^3/uL (1.0-4.0); LYMPHOCYTES % (AUTO) 22 % (12-44); MEAN CORPUSCULAR HEMOGLOBIN 28 pg (25-34); MEAN CORPUSCULAR HGB CONC 33 g/dL (32-36); MEAN CORPUSCULAR VOLUME 83 fL (80-99); MEAN PLATELET VOLUME 9.6 fL (9.0-12.2); MONOCYTES # (AUTO) 0.5 10^3/uL (0.0-1.0); MONOCYTES % (AUTO) 7 % (0-12); NEUTROPHILS # (AUTO) 5.7 10^3/uL (1.8-7.8); NEUTROPHILS % (AUTO) 68 % (42-75); PLATELET COUNT 322 10^3/uL (130-400); WHITE BLOOD COUNT 8.4 10^3/uL (4.3-11.0)
[2021-06-02] MEDS ORDERED: NEOSTIGMINE 3 MG/3 ML VIAL ONE (10:08)
[2021-06-02] MEDS ORDERED: MIDAZOLAM 2 MG/2 ML (VERSED) VIAL ONE (10:08)
[2021-06-02] MEDS ORDERED: proPOfol 200 MG/20 ML (DIPRIVAN) VIAL IV ONE (10:08)
[2021-06-02] MEDS ORDERED: LIDOCAINE PF 2% 5 ML (XYLOCAINE) VIAL ONE (10:08)
[2021-06-02] MEDS ORDERED: ROCURONIUM 10 MG/ML 5 ML SYRINGE IV ONE (10:08)
[2021-06-02] MEDS ORDERED: ONDANSETRON 4 MG/2 ML (SDV) Z0FRAN ONE (10:08)
[2021-06-02] MEDS ORDERED: fentaNYL INJ 100 MCG/2 ML AMP ONE (10:08)
[2021-06-02] MEDS ORDERED: GLYCOPYRROLATE 0.2 MG/ML (ROBINUL) 2 ML VIAL ONE (10:08)
[2021-06-02] MEDS ORDERED: BUPIVACAINE 0.25% 30 ML (SENSORCAINE) VIAL ONE (10:15)
[2021-06-02] MEDS ORDERED: ACHD5005 PO (10:35)
[2021-06-02] MEDS ORDERED: IBUP-1773 PO (10:35)
--- NOTE | 2021-06-02 10:35 | Discharge Inst-Women's Service ---
Discharge Inst-Women's Serv Depart Medication/Instructions New, Converted or Re-Newed RX: Transmitted to Pharmacy Problems Reviewed?: Yes Consults/Follow Up Additional Follow Up: Yes Orders/Referrals Dr. Lund in 7-10 days Activity Activity: Activity as Tolerated Driving Instructions: No Driving for 1 Week NO SMOKING: NO SMOKING Nothing Inside Vagina: No Douching, No [place], No Tampons Diet Discharge Diet: No Restrictions Symptoms to Report to : Bleeding Excessive, Pain Increased, Fever Over 101 Degrees F, Vaginal Bleeding Increase, Questions/Concerns For Any Problems or Questions: Contact Your Physician Skin/Wound Care Infection Signs and Symptoms: Increased Redness, Foul Odor of Wound, Increased Drainage, Skin Itchy or Has a Rash, Increased Swelling, Temperature Above 101 F Operative Area Clean and Dry: Keep Incision Clean/Dry Stitches/[place]/Dermabond: Dermabond, Care of Stitches Bathing Instructions: JOI Dye DO Jun 02, 2021 10:35
[2021-06-02] MEDS ORDERED: HYDROcodone/APAP 5 MG/325 MG (LORTAB) TAB PO PRN (10:45)
[2021-06-02] MEDS ORDERED: ONDANSETRON 4 MG/2 ML (SDV) Z0FRAN IVP PRN ×3 (10:45→13:30)
[2021-06-02] MEDS ORDERED: D5 LR IV SOLUTION 1,000 ML IV SCH (10:45)
[2021-06-02] MEDS ORDERED: KETOROLAC 30 MG/ML VIAL IVP ONE (10:45)
--- NOTE | 2021-06-02 11:04 | Progress Note-Pre Operative ---
Pre-Operative Progress Note H&P Reviewed The H&P was reviewed, patient examined and no changes noted. Date Seen by Provider: Jun 02, 2021 Time Seen by Provider: 10:30 Date H&P Reviewed: Jun 02, 2021 Time H&P Reviewed: 10:30 Pre-Operative Diagnosis: Acute on Chronic pelvic pain, Ovarian cyst JOI RUIZ DO Jun 02, 2021 11:04
[2021-06-02] MEDS ORDERED: SEVOFLURANE (ULTANE) 15 ML INHAL SOLN ONE (12:06)
[2021-06-02] MEDS ORDERED: fentaNYL INJ 100 MCG/2 ML AMP IVP ONE ×2 (12:30→13:30)
[2021-06-02] MEDS ORDERED: morphine INJ 10 MG/ML 1ML (SYR OR VIAL) IVP ONE ×2 (12:30→13:30)
--- NOTE | 2021-06-02 13:23 | Anesthesia-General Post-Op ---
General Patient Condition Mental Status/LOC: Same as Preop Cardiovascular: Satisfactory Nausea/Vomiting: Absent Respiratory: Satisfactory Pain: Controlled Complications: Absent Post Op Complications Complications None Follow Up Care/Instructions Patient Instructions None needed. Anesthesia/Patient Condition Patient Condition Patient is doing well, no complaints, stable vital signs, no apparent adverse anesthesia problems. No complications reported per nursing. ELLEN EPSTEIN CRNA Jun 02, 2021 13:23
--- NOTE | 2021-06-02 19:02 | OPERATIVE REPORT ---
DATE OF SERVICE: PREOPERATIVE DIAGNOSES: 1. A 25-year-old female with [id number] pelvic pain. 2. History of ovarian cyst. POSTOPERATIVE DIAGNOSES: 1. A 25-year-old female with [id number] pelvic pain. 2. History of ovarian cyst. PROCEDURE: Diagnostic laparoscopy. SURGEON: Joi Ruiz DO ANESTHESIA: LMA general. ESTIMATED BLOOD LOSS: Minimal. URINE OUTPUT: 50 mL drained at the start of the procedure. FLUIDS: 800 mL lactated Ringer's solution. FINDINGS: Grossly normal-appearing external female genitalia, grossly normal-appearing uterus, bilateral fallopian tubes and ovaries. SPECIMEN SENT: None. INDICATIONS FOR PROCEDURE: This 25-year-old female is a patient who had sought care earlier in the year for chronic pelvic pain. We had attributed this to chronic ovarian cyst formation. However, more recently, she had a recurrence of this pain that was debilitating that started last week and got significant and severe in nature and was debilitating and keeping her from doing day-to-day activities and ultrasound did show an ovarian cyst approximately 3 days before the onset of this pain; therefore, she attributed to the cyst. She wished to proceed with operative measures for finding out what was the pain source including if ovarian cysts were causing her pain as well as endometriosis. I discussed with the patient the procedure diagnostic laparoscopy. Risks of procedure were discussed with the patient in detail and after all of her questions were answered, consent was obtained, the patient was taken to the operating room. OPERATIVE REPORT IN DETAIL: Once in the operating room, anesthesia was found to be adequate. She was placed in dorsal lithotomy position, prepped and draped in normal sterile fashion where a timeout was performed. A Strickland catheter was placed using sterile technique. Weighted speculum was inserted into the patient's vagina. Right angle retractor was used to visualize the cervix, which was grasped at 12 o'clock position using a long Allis clamp. I then gently sounded the uterine cavity and found to be 8 cm. I placed a [employer] uterine manipulator to a depth of 8 cm into the uterus. I deployed the balloon and the manipulator was set in place. I then removed all other instruments from the patient's vagina, performed change of gloves and took my attention to the abdomen, where subcostally at the midclavicular line, I introduced a Veress needle until intraperitoneal placement was confirmed using saline drop test. I began insufflation with CO2 gas and opening pressure of 4 mmHg was noted. I proceeded to max pressure of 15 mmHg, at which point I infiltrated the infraumbilical area using 0.25% Marcaine and make a 5 mm incision with a knife and directed a 5 mm blunt laparoscopic trocar through the incision until intraperitoneal placement was confirmed using the laparoscope. There was no evidence of damage upon my entry site. There is no evidence of damage in the left upper quadrant from the site and the Veress was removed at that point. I then had the patient placed in steep Trendelenburg where I was able to visualize all my pelvic anatomy as defined in my findings above. There was no evidence of any pathology. Ovaries, fallopian tubes, uterus, all appear grossly normal. I performed a gentle irrigation of the area. I then had the patient taken out of the steep Trendelenburg where I released insufflation and introduced 10 mL of 0.25% Marcaine into the peritoneal cavity for postoperative pain management. I then removed this trocar as well once insufflation was removed. The skin was reapproximated using Dermabond. A bandage was placed over the incision. Strickland catheter and uterine manipulator were removed at the end of the procedure. The patient tolerated the procedure well and sent to recovery area in stable condition. Lap and sponge counts were correct at the end of procedure. Instrument counts were correct as well. Job ID: [id number] DocumentID: [id number] Dictated Date: 06/02/2021 12:41:30 Trauma Therapist Date: 06/02/2021 19:01:47 Dictated By: JOI RUIZ DO
== END 2021-06-02 14:24 | disposition home or self-care (01) ==
LOC: SDC 08:41
PROVIDERS: ATTEND Obstetrics & Gynecology
DX: G89.29 Other chronic pain (principal); R10.2 Pelvic and perineal pain; N83.292 Other ovarian cyst, left side
CPT/HCPCS: 36415; 84703; 85025; 86850; 86900; 86901; 87081; 94664